=== PATIENT | female | born 1995 | race Two or more races ===

== ENCOUNTER 2024-09-12 11:33 | Emergency (ER) | payer MEDICAID, SELFPAY ==
[2024-09-12 11:33] VITALS: BMI 31.1
[2024-09-12 11:39] VITALS: BP 106/71; PULSE 66; RESP 18; TEMP 37.2; O2SAT 97
--- NOTE | 2024-09-12 11:45 | XR_ITS ---
Examination: Pelvic ultrasound, transabdominal, complete Technique: Transabdominal ultrasound of the pelvis performed using grayscale imaging Date and time of exam: September 12, 2024 1242 hours INDICATIONS: Right pelvic pain beginning 2 weeks ago, 29 mm right ovarian cyst on pelvic sonogram March 28, 2024 FINDINGS: Uterus 7.4 cm endometrial stripe 0.5 cm No uterine mass or intrauterine gestation Right ovary 2.9 cm arterial flow 15 mm follicular cyst Left ovary 4.6 cm arterial flow 16 mm follicular cyst IMPRESSION: No uterine mass or intrauterine gestation
--- NOTE | 2024-09-12 11:45 | PD.EDRME ---
Rapid Medical Screening Exam RME Arrival date/time: 09/12/24 11:33 29-year-old female with history of ovarian cyst presents emergency department today with complaint of right-sided pelvic pain patient was sent by her PCP to rule out ovarian torsion Chief Complaint: Abdominal Pain Vital signs: Vital Signs Temperature 98.9 F 09/12/24 11:39 Pulse Rate 66 09/12/24 11:39 Respiratory Rate 18 09/12/24 11:39 Blood Pressure 106/71 09/12/24 11:39 Pulse Oximetry (%) 97 09/12/24 11:39 Oxygen Delivery Method Room Air 09/12/24 11:39
[2024-09-12 12:03] LABS: Basophils # (Auto) 0.1 Thou/mm3 (0.0-0.2); Basophils % (Auto) 1 % (0-2.5); Eosinophils # (Auto) 0.3 Thou/mm3 (0.0-0.5); Eosinophils % (Auto) 4 % (0-10); Hematocrit 41.1 % (36.0-46.0); Hemoglobin 13.6 g/dL (12.0-16.0); Immature Granulocytes % (Auto) 0 % (0-0); Immature Granulocytes Auto 0.01 Thou/mm3 (0.00-0.00); Lymphocytes # (Auto) 3.4 Thou/mm3 (1.0-4.8); Lymphocytes % (Auto) 41 % (10-50); Mean Corpuscular HGB Conc 33.1 g/dl (31.0-37.0); Mean Corpuscular Hemoglobin 30.2 pg (25.0-35.0); Mean Corpuscular Volume 91 fL (80-100); Monocytes # (Auto) 0.6 Thou/mm3 (0.0-0.8); Monocytes % (Auto) 7 % (0-12); Neutrophils # (Auto) 3.9 Thou/mm3 (1.8-7.7); Neutrophils % (Auto) 48 % (37-80); Nucleated Red Blood Cell % 0 /100 WBC (0); Platelet Count 367 Thou/mm3 (140-440); RDW Standard Deviation 43.8 fL (36.4-46.3); Red Blood Count 4.51 Miln/mm3 (4.00-5.20); White Blood Count 8.2 Thou/mm3 (3.6-11.0)
[2024-09-12 12:30] LABS: Alanine Aminotransferase 7 U/L (10-49); Albumin, Serum 4.6 gm/dL (3.5-5.0); Albumin/Globulin Ratio 1.5 (1.2-2.2); Alkaline Phosphatase 76 U/L (46-116); Anion Gap 5 (7-16); Aspartate Amino Transferase 12 U/L (0-34); BUN/Creatinine Ratio 8 Ratio (12-20); Bilirubin,Total 0.7 mg/dL (0.3-1.2); Blood Urea Nitrogen < 5 mg/dL (9-23); Calcium 9.2 mg/dL (8.3-10.6); Calcium (Corrected) 9.2 mg/dL (8.5-10.1); Carbon Dioxide 27.7 mMol/L (20.0-31.0); Chloride 107 mMol/L (98-107); Creatinine (Component) 0.6 mg/dL (0.6-1.3); Glucose 95 mg/dL (74-106); Lipase 32 U/L (12-53); Osmolality,Calculated 276 (275-295); Potassium 4.1 mMol/L (3.4-5.1); Sodium 140 mMol/L (136-145); Total Protein 7.6 gm/dL (5.7-8.2); eGFR > 60 See Note
[2024-09-12 13:25] LABS: Collection Type, Urine Clean Catch
[2024-09-12 13:43] LABS: Bilirubin,Urine Negative (Negative); Blood,Urine Trace (Negative); Clarity,Urine Clear (Clear/Hazy); Color,Urine Colorless (Lt Yel-Yel); Culture Indicated,Urine Not Indicated; Glucose, Urine Negative (Negative); Ketones,Urine Negative (Negative); Leukocyte Esterase,Urine Negative (Negative); Nitrite,Urine Negative (Negative); PH,Urine 6.5 (5.0-7.0); Protein,Urine Negative (Neg - Trace); RBC,Urine < 1 /hpf (0-3); Specific Gravity,Urine 1.005 (1.001-1.035); Squamous Epithelial Cell,Urine < 1 /hpf (0-5); Urobilinogen,Urine Negative mg/dL (0.0-1.0); WBC,Urine 1 /hpf (0-5)
[2024-09-12 14:40] LABS: HCG Qualitative,Urine Negative
--- NOTE | 2024-09-12 14:41 | EDNOTE_ITS ---
ED Abdominal Pain RME/HPI General Chief Complaint: Abdominal Pain Stated complaint: RULE OUT OVARIAN TORSION Time seen by provider: 09/12/24 13:10 Arrival date/time: 09/12/24 11:33 29-year-old female with history of ovarian cyst presents emergency department today with complaint of right-sided pelvic pain patient was sent by her PCP to rule out ovarian torsion. There are no other associated symptoms or aggravating factors no other modifying factors, patient denies taking medication before coming to ER today Limitations: no limitations RME / HPI RME / HPI narrative: 09/12/24 11:33 29-year-old female with history of ovarian cyst presents emergency department today with complaint of right-sided pelvic pain patient was sent by her PCP to rule out ovarian torsion Related Data Previous Rx's ?Medication ?Instructions ?Recorded ibuprofen 800 mg tablet 800 mg PO TID PRN pain #30 t abs 09/12/24 Allergies Allergy/AdvReac Type Severity Reaction Status Date / Time NKA* Allergy Uncoded 09/12/24 11:36 Review of Systems Review of Systems Systems Reviewed: All systems reviewed, normal except as documented Constitutional Constitutional: Reports system reviewed and no additional complaints, except as documented, Denies fever(s) and Denies headache(s) Eyes Eyes: Reports system reviewed and no additional complaints, except as documented and Denies blurry vision ENT Ears, Nose, Mouth, and Throat: Reports system reviewed and no additional complaints, except as documented, Denies headache(s), Denies nasal congestion and Denies nasal discharge Cardiovascular Cardiovascular: Reports system reviewed and no additional complaints, except as documented, Denies chest pain and Denies dyspnea Respiratory Respiratory: Reports system reviewed and no additional complaints, except as documented, Denies chest congestion, Denies cough and Denies dyspnea Gastrointestinal Gastrointestinal: Reports system reviewed and no additional complaints, except as documented and Denies abdominal pain Genitourinary Genitourinary: Reports system reviewed and no additional complaints, except as documented and Reports other (Pelvic pain right) Integumentary/Breasts Skin/Breast: Reports system reviewed and no additional complaints, except as documented and Denies rash Neurologic Neurologic: Reports system reviewed and no additional complaints, except as documented, Reports as per HPI and Denies headache(s) Past Medical History Social History SMOKING STATUS: Never smoker ED Exam General Limitations: Present no limitations General appearance: Present alert and in no apparent distress Head Head exam: Present atraumatic Eye Eye exam: Present normal appearance, PERRL and EOMI ENT ENT exam: Present normal exam, normal oropharynx and mucous membranes moist Neck Neck exam: Present normal inspection, full ROM and trachea midline Chest Chest inspection: Present normal inspection and symmetric chest wall rise Respiratory Respiratory exam: Present normal lung sounds bilaterally Cardiovascular Cardiovascular exam: Present regular rate, normal rhythm and normal heart sounds Abdominal Exam Abdominal exam: Present soft and normal bowel sounds; Absent distention, tenderness, guarding, rebound or rigidity Extremities Exam Extremities exam: Present normal inspection and full ROM Back Exam Back exam: Present normal inspection and full ROM Neurological Exam Neurological exam: Present alert, oriented X3 and CN II-XII intact Psychiatric Psychiatric exam: Present normal affect and normal mood Skin Skin exam: Present warm, dry, intact and normal color Course Quality Measures none Orders Category Date Time Status US pelvic complete Stat Exams 09/12/24 11:45 Completed CBC Stat Lab 09/12/24 11:54 Completed Comprehensive Metabolic Panel Stat Lab 09/12/24 11:54 Completed HCG Qualitative,Urine Stat Lab 09/12/24 13:05 Completed Lipase Stat Lab 09/12/24 11:54 Completed UA, C/S IF [Urinalysis, C/S if Indicated] Stat Lab 09/12/24 13:05 Completed Vital Signs Vital signs: Vital Signs Temperature 98.9 F 09/12/24 11:39 Pulse Rate 66 09/12/24 11:39 Respiratory Rate 18 09/12/24 11:39 Blood Pressure 106/71 09/12/24 11:39 Pulse Oximetry (%) 97 09/12/24 11:39 Oxygen Delivery Method Room Air 09/12/24 11:39 O2 saturation 97% room air within normal limits Abdominal Pain MDM MDM Narrative MDM Narrative:: 29-year-old female with history of ovarian cyst presents emergency department today with complaint of right-sided pelvic pain patient was sent by her PCP to rule out ovarian torsion. There are no other associated symptoms or aggravating factors no other modifying factors, patient denies taking medication before coming to ER today On exam patient well-appearing patient does not appear ill or toxic and in no acute distress Patient does not appear in any significant pain imaging as well as lab work obtained no acute emergent findings noted patient does have simple ovarian cysts per ultrasound Patient discharged home in no distress to follow-up with primary care doctor in the next 24 to 48 hours and for any worsening symptoms to return to the ER immediately Patient data External records reviewed:: [facility] previous records Clinical information provided by:: patient Social determinants that could affect healthcare access:: none Patient has the following chronic illnesses:: None How is presenting disease/condition affected by chronic disease/condition?: no chronic disease Evaluation data The following diagnostics were reviewed and interpreted by me:: lab results and radiology exam(s) Lab and/or radiology exams considered but not ordered:: Labs radiology obtain Interpretation Summary: Reviewed by me Medications / Prescriptions Medications or Prescriptions considered but not ordered:: Given Medication administrations:: Given Consultations Consultation(s) initiated? (list below): No Diagnosis Differential diagnosis abdominal pain: other (Pelvic pain, ovarian cyst) Most likely diagnosis given after review of the tests above:: Ovarian cyst Admission Indicated Admission indicated?: not indicated Admission Request Was there a request for admission?: No Disposition Plan Disposition Plan: Discharge Discharge Attestation Discharge Attestation: The patient and all family members were given an opportunity to ask questions and understood the discharge instructions. Discharge instructions specifically effects, indications for sooner follow up or return to the emergency department, and the expected course of current diagnosis. Patient condition: Stable Discharge Plan Plan Patient Disposition: HOME (Self Care) Disposition Comment: Stable Prescriptions/Referrals Prescriptions/Med Rec: New ibuprofen 800 mg tablet 800 mg PO TID PRN (Reason: pain) Qty: 30 0RF Referrals: Zoraida Oliver MD [Primary Care Provider] - In 1 week Problem List Clinical Impression: Ovarian cyst, Pelvic pain Patient/Caregiver Discharge Instructions Education Materials: ED Ovarian Cyst Additional Instructions: Please follow up with your primary care doctor in the next 24-48hrs for any wor sening symptoms return here immediately Print Language: Sami Stand Alone Forms: Nayely Award Info., Work/School Release, Patient Portal Info Letter LILIAN/PAIGE Supervising Physician LILIAN/PAIGE Supervising Physician: Dr Cardenas
== END 2024-09-12 14:46 | disposition home or self-care (01) ==
PROVIDERS: Nurse Practitioner Primary Care; Emergency Provider Emergency Medicine; PCP Internal Medicine
DX: N83.201 Unspecified ovarian cyst, right side (principal)
CPT/HCPCS: 36415; 76856; 80053; 81001; 81025; 83690; 85025; 99284